=== PATIENT | female | born 1955 | race Caucasian/White ===

== ENCOUNTER 2024-12-10 06:35 | Day surgery (SDC) | payer MEDICARE, OTHER ==
[~2024-12-10] VITALS: Ht 144.8 cm; Wt 38.2 kg
[2024-12-10] MEDS: SODIUM CHLORIDE 0.9% 1,000 ML IV ONE (07:17)
[2024-12-10] MEDS ORDERED: PRED-729 PO (07:23)
[2024-12-10] MEDS ORDERED: MONT-40 PO (07:23)
[2024-12-10] MEDS ORDERED: PROM473S6 PO (07:23)
[2024-12-10] MEDS ORDERED: FentaNYL CITRATE PF 100 MCG/2 ML VIAL ONE (08:25)
[2024-12-10] MEDS ORDERED: MIDAZOLAM HCL 2 MG/2 ML VIAL ONE (08:25)
[2024-12-10 09:25] VITALS: PULSE 61; RESP 20; O2SAT 97
[2024-12-10] MEDS ORDERED: LIDOCAINE 4% 50 ML SOLUTION ONE (12:00)
[2024-12-10] MEDS ORDERED: ALBUTEROL SULFATE 2.5 MG/0.5 ML NEB SOLUTION NEB ONE (12:00)
[2024-12-10] MEDS ORDERED: BENZOCAINE 20% 50 MCG/SPRAY 57 GM ONE (12:00)
[2024-12-10] MEDS ORDERED: LIDOCAINE 2% 11 ML JELLY ONE (12:00)
== END 2024-12-10 12:20 | disposition home or self-care (01) ==
LOC: SDS 06:35
PROVIDERS: ATTEND Internal Medicine Critical Care Medicine
DX: R05.3 Chronic cough (principal); J38.4 Edema of larynx; B37.0 Candidal stomatitis; Z88.0 Allergy status to penicillin; Z79.899 Other long term (current) drug therapy
CPT/HCPCS: 31623; 87206; 87101; 87220; 87070; 88108; 31624; 94760; 71045; 87015; J3010; J2250; J2919; 87186; J7613; Z7610